=== PATIENT | female | born 1955 | race Caucasian/White ===

== ENCOUNTER → 2020-11-11 | Day surgery (SDC) | payer MEDICARE ==
[~2020-11-11] MED LIST: BIOTIN800 MCG PO; BUPIVACAINE 0.25% 30ML SDV ONE; CALCIUM CARBON500 MG PO; DEXAMETHASONE SOD PHOS INJ 4 MG/ML VIAL ONE; FENTANYL CITRATE/PF 100MCG/2 ML INJ ONE; FEROSUL325 MG PO; KETOROLAC TROMETHAMINE 30 MG/ML VIAL ONE; LIDOCAINE HCL 2% LOCAL INJ 5 ML SDV VIAL INJ ONE; MIDAZOLAM HCL 2 MG/2 ML VIAL ONE; ONDANSETRON HCL INJ 2MG/ML 2ML 2 MG/ML VIAL ONE; POVIDONE IODINE 0.05% 0.05 % ML PO ONE; PROPOFOL IV EMULSION 10 MG/ML 20 ML VIAL ONE; SEVOFLURANE INHAL SOLN 250 ML PEN BTL ONE; VITAMIN D310 MCG PO; ZYRTEC10 MG PO
[2020-11-11 14:14] VITALS: BP 114/81
== END | disposition home or self-care (01) ==
LOC: OR 08:24
PROVIDERS: ATTEND Surgery
DX: M62.89 Other specified disorders of muscle (principal); Z01.810 Encounter for preprocedural cardiovascular examination; Z01.812 Encounter for preprocedural laboratory examination; Z20.822 Contact with and (suspected) exposure to COVID-19
CPT/HCPCS: 27048; 71046; 88305; 88342; 93005; J1100; J1885; J2001; J2250; J2405; J2704; J3010; U0002; 88304; 88307

== ENCOUNTER 2020-12-30 09:10 | Inpatient (IN) | payer MEDICARE ==
[2020-12-27 18:43] LABS: HEMOGLOBIN 12.3 g/dL (12.0-16.0); RED BLOOD COUNT 3.94 x10e6/uL (3.6-5.1)
[2020-12-27 18:44] LABS: ALBUMIN 3.9 g/dL (3.5-5.0); ALBUMIN/GLOBULIN RATIO 1.4 (0.8-2.0); ANION GAP 11.9 mmol/L (8-16); BASOPHILS % 0.5 % (0.0-1.0); CREATININE, SERUM 0.68 mg/dL (0.57-1.11); EOSINOPHILS % 1.1 % (0.0-6.0); HEMATOCRIT 37.5 % (34.2-44.1); LYMPHOCYTES % 27.1 % (18.0-39.1); MEAN CORPUSCULAR HEMOGLOBIN 31.2 pg (28-32); MEAN CORPUSCULAR HGB CONC 32.8 g/dL (31-35); MEAN CORPUSCULAR VOLUME 95.2 fL (81-99); MONOCYTES # (AUTO) 0.4 (0.2-0.8); NEUTROPHILS # (AUTO) 2.2 (2.1-6.9); PLATELET COUNT 199 x10e3/uL (140-360); POTASSIUM 3.9 mmol/L (3.5-5.1); RED CELL DISTRIBUTION WIDTH 13.7 % (11.7-14.4)
[~2020-12-30] VITALS: Ht 165.1 cm; Wt 60.1 kg
[~2020-12-30 09:10] MED LIST changes: -BUPIVACAINE 0.25% 30ML SDV ONE; -DEXAMETHASONE SOD PHOS INJ 4 MG/ML VIAL ONE; -FENTANYL CITRATE/PF 100MCG/2 ML INJ ONE; -KETOROLAC TROMETHAMINE 30 MG/ML VIAL ONE; -LIDOCAINE HCL 2% LOCAL INJ 5 ML SDV VIAL INJ ONE; -MIDAZOLAM HCL 2 MG/2 ML VIAL ONE; -ONDANSETRON HCL INJ 2MG/ML 2ML 2 MG/ML VIAL ONE; -POVIDONE IODINE 0.05% 0.05 % ML PO ONE; -PROPOFOL IV EMULSION 10 MG/ML 20 ML VIAL ONE; -SEVOFLURANE INHAL SOLN 250 ML PEN BTL ONE
[2020-12-30] MEDS ORDERED: MIDAZOLAM HCL 2 MG/2 ML VIAL ONE (11:56)
[2020-12-30] MEDS ORDERED: FENTANYL CITRATE/PF 100MCG/2 ML INJ ONE (11:56)
[2020-12-30] MEDS ORDERED: POVIDONE IODINE 0.05% 0.05 % ML PO ONE (12:12)
[2020-12-30] MEDS ORDERED: PROPOFOL IV EMULSION 10 MG/ML 20 ML VIAL ONE (12:12)
[2020-12-30] MEDS ORDERED: LIDOCAINE HCL 2% LOCAL INJ 5 ML SDV VIAL INJ ONE (12:12)
[2020-12-30] MEDS ORDERED: NEOSTIGMINE 1 MG/ML 10ML VIAL ONE (12:12)
[2020-12-30] MEDS ORDERED: ROCURONIUM BROMIDE 10 MG/ML 5ML VIAL IV ONE (12:12)
[2020-12-30] MEDS ORDERED: ATROPINE SULFATE 1 MG/ML VIAL ONE (12:12)
[2020-12-30] MEDS ORDERED: SEVOFLURANE INHAL SOLN 250 ML PEN BTL ONE (12:12)
[2020-12-30] MEDS ORDERED: ONDANSETRON HCL INJ 2MG/ML 2ML 2 MG/ML VIAL ONE (12:12)
[2020-12-30] MEDS ORDERED: DEXAMETHASONE SOD PHOS INJ 4 MG/ML VIAL ONE (12:12)
[2020-12-30] MEDS ORDERED: KETOROLAC TROMETHAMINE 30 MG/ML VIAL ONE (12:12)
[2020-12-30] MEDS ORDERED: BUPIVACAINE HCL 0.5% INJ 30 ML VIAL INJ ONE (12:26)
[2020-12-30] MEDS ORDERED: ACETAMINOPHEN 1000 MG/100 ML IV PRN (14:15)
[2020-12-30] MEDS ORDERED: ONDANSETRON HCL INJ 2MG/ML 2ML 2 MG/ML VIAL IV PRN (14:15)
[2020-12-30] MEDS ORDERED: HYDROMORPHONE 1MG/1ML INJ IV PRN (14:15)
[2020-12-30 17:12] VITALS: BP 129/62
[2020-12-30 17:55] VITALS: BP 129/62
[2020-12-30] MEDS: SODIUM CHLORIDE 0.9% 1000ML 1,000 ML IV SCH (19:03)
[2020-12-30 19:52] VITALS: BP 131/70
[2020-12-30 20:00] VITALS: BP 131/70
[2020-12-31] VITALS (9 sets, daily range): BP systolic 104–129; BP diastolic 59–69
[2020-12-31] MEDS: SODIUM CHLORIDE 0.9% 1000ML 1,000 ML IV SCH ×3 (05:52→21:48)
[2020-12-31 06:02] LABS: BASOPHILS % 0.2 % (0.0-1.0); HEMATOCRIT 35.1 % (34.2-44.1); HEMOGLOBIN 11.6 g/dL (12.0-16.0); LYMPHOCYTES # (AUTO) 0.6 (1.0-3.2); LYMPHOCYTES % 5.6 % (18.0-39.1); MEAN CORPUSCULAR HEMOGLOBIN 30.8 pg (28-32); MEAN CORPUSCULAR VOLUME 93.1 fL (81-99); MONOCYTES # (AUTO) 0.7 (0.2-0.8); MONOCYTES % 6.5 % (4.4-11.3); NEUTROPHILS # (AUTO) 9.6 (2.1-6.9); NEUTROPHILS % 87.2 % (38.7-80.0); PLATELET COUNT 188 x10e3/uL (140-360); RED BLOOD COUNT 3.77 x10e6/uL (3.6-5.1); RED CELL DISTRIBUTION WIDTH 13.3 % (11.7-14.4)
[2020-12-31 06:21] LABS: CREATININE, SERUM 0.67 mg/dL (0.57-1.11)
[2020-12-31] MEDS: HYDROCODONE/APAP 7.5MG-325MG 1 EA TAB PO PRN ×2 (08:59→18:35)
[2021-01-01 04:33] VITALS: BP 119/74
[2021-01-01] MEDS: HYDROCODONE/APAP 7.5MG-325MG 1 EA TAB PO PRN ×4 (05:15→20:29)
[2021-01-01 06:23] LABS: BASOPHILS % 0.3 % (0.0-1.0); EOSINOPHILS # (AUTO) 0.1 (0.0-0.4); EOSINOPHILS % 0.8 % (0.0-6.0); HEMATOCRIT 33.9 % (34.2-44.1); HEMOGLOBIN 11.2 g/dL (12.0-16.0); LYMPHOCYTES # (AUTO) 0.4 (1.0-3.2); LYMPHOCYTES % 5.6 % (18.0-39.1); MEAN CORPUSCULAR HEMOGLOBIN 31.1 pg (28-32); MEAN CORPUSCULAR VOLUME 94.2 fL (81-99); MONOCYTES # (AUTO) 0.4 (0.2-0.8); MONOCYTES % 5.4 % (4.4-11.3); NEUTROPHILS # (AUTO) 6.6 (2.1-6.9); NEUTROPHILS % 87.5 % (38.7-80.0); PLATELET COUNT 154 x10e3/uL (140-360); RED CELL DISTRIBUTION WIDTH 13.3 % (11.7-14.4)
[2021-01-01 06:48] LABS: ANION GAP 8.8 mmol/L (8-16); CALCIUM 8.7 mg/dL (8.4-10.2); CREATININE, SERUM 0.63 mg/dL (0.57-1.11); POTASSIUM 3.8 mmol/L (3.5-5.1)
[2021-01-01 07:58] VITALS: BP 105/71
[2021-01-01 08:18] VITALS: BP 105/71
[2021-01-01] MEDS: SODIUM CHLORIDE 0.9% 1000ML 1,000 ML IV SCH ×2 (08:47→19:30)
[2021-01-01 11:19] VITALS: BP 119/73
[2021-01-01 20:00] VITALS: BP 106/63
[2021-01-02] VITALS: BP 117/70
[2021-01-02] MEDS: HYDROCODONE/APAP 7.5MG-325MG 1 EA TAB PO PRN ×3 (01:54→12:35)
[2021-01-02 04:00] VITALS: BP 113/65
[2021-01-02] MEDS: SODIUM CHLORIDE 0.9% 1000ML 1,000 ML IV SCH (05:30)
[2021-01-02 08:14] VITALS: BP 118/72
[2021-01-02 08:29] VITALS: BP 118/72
[2021-01-02 09:14] LABS: BASOPHILS % 0.3 % (0.0-1.0); EOSINOPHILS # (AUTO) 0.1 (0.0-0.4); EOSINOPHILS % 1.9 % (0.0-6.0); HEMATOCRIT 40.9 % (34.2-44.1); HEMOGLOBIN 13.2 g/dL (12.0-16.0); MEAN CORPUSCULAR HEMOGLOBIN 30.7 pg (28-32); MEAN CORPUSCULAR HGB CONC 32.3 g/dL (31-35); MEAN CORPUSCULAR VOLUME 95.1 fL (81-99); MONOCYTES # (AUTO) 0.4 (0.2-0.8); MONOCYTES % 5.7 % (4.4-11.3); NEUTROPHILS # (AUTO) 4.9 (2.1-6.9); NEUTROPHILS % 76.6 % (38.7-80.0); PLATELET COUNT 243 x10e3/uL (140-360); RED CELL DISTRIBUTION WIDTH 13.3 % (11.7-14.4)
[2021-01-02 09:36] LABS: ANION GAP 11.5 mmol/L (8-16); CALCIUM 9.1 mg/dL (8.4-10.2); CREATININE, SERUM 0.61 mg/dL (0.57-1.11); POTASSIUM 3.5 mmol/L (3.5-5.1)
[2021-01-02 11:41] VITALS: BP 108/71
[2021-01-02] MEDS ORDERED: ONDANSETRON HCL 4 MG ORAL DISINTEGRATING TAB PO PRN (14:30)
== END 2021-01-02 14:27 | disposition home or self-care (01) | DRG 358 ==
LOC: OR 09:10 → MED/SURG 17:00
PROVIDERS: ADMIT Surgery; ATTEND Surgery
PROC: 0WBH0ZZ Excision of Retroperitoneum, Open Approach (ICD-10-PCS; principal; 2020-12-30 11:30)
DX: K68.9 Other disorders of retroperitoneum (principal)
CPT/HCPCS: 36415; 71046; 80048; 80053; 82948; 85025; 88305; 88342; 93005; J0461; J1100; J1885; J2001; J2250; J2405; J2710; J3010; J7030

== ENCOUNTER → 2021-06-21 | Outpatient (CLI) | payer MEDICARE ==
[~2021-06-21] MED LIST changes: +GADOBENATE DIMEGLUMINE 1 ML IV ONE
[2021-06-21 09:51] LABS: CREATININE, SERUM 0.69 mg/dL (0.57-1.11)
== END ==
LOC: MRI 08:59
PROVIDERS: ATTEND Surgery
DX: R19.09 Other intra-abdominal and pelvic swelling, mass and lump (principal)
CPT/HCPCS: 36415; 72197; 82565; 84520; A9577